=== PATIENT | male | born 1950 | race Caucasian/White ===

== ENCOUNTER 2018-10-07 10:35 | Emergency (ER) | payer MEDICARE ==
[~2018-10-07] VITALS: Ht 170.2 cm; Wt 79.4 kg
[~2018-10-07 10:35] MED LIST: AMLODIPINE BESY10 MG PO; ATENOLOL50 MG PO; CHOLESTYRAMINE P4 GM PO; CIPRO500 MG PO; FLAGYL500 MG PO; LOSARTAN-HCTZ1 EAC2 PO; NAPROXEN500 MG PO; ROBAXIN-750750 MG PO
== END 2018-10-07 11:31 | disposition home or self-care (01) ==
LOC: ED 10:35
PROC: 0HQEXZZ Repair Left Lower Arm Skin, External Approach (ICD-10-PCS; principal; 2018-10-07)
DX: S51.812A Laceration without foreign body of left forearm, initial encounter (principal); I10 Essential (primary) hypertension; Z88.5 Allergy status to narcotic agent; Z79.899 Other long term (current) drug therapy; W45.8XXA Other foreign body or object entering through skin, initial encounter
CPT/HCPCS: 12002; 90471; 90715; 99282-25

== ENCOUNTER 2019-02-12 08:19 | Day surgery (SDC) | payer MEDICARE ==
[~2019-02-12] VITALS: Ht 162.6 cm; Wt 75.8 kg
[~2019-02-12 08:19] MED LIST changes: +OMEPRAZOLE20 MG PO
--- NOTE | 2019-02-12 10:42 | NUR ---
02/12/19 1042 Roosevelt,Janice 1035 PT ARRIVED TO PACU ASLEEP VSS. RESP EVEN AND UNLABORED. 1038 PT WAKES TO TACTILE STIMULI AND DENIES PAIN AND NAUSEA. PLAN OF CARE DISCUSSED.
--- NOTE | 2019-02-12 18:14 | OR ---
[facility] [address], [place] [address] Signed DATE OF OPERATION: 02/12/2019 SURGEON: Nicky Arango MD PREOPERATIVE DIAGNOSES: 1. Low anterior resection in 2005 for diverticular disease. 2. A 29 mm EEA stapled colorectal anastomosis. POSTOPERATIVE DIAGNOSES: 1. Aoclsgl-tx-qhfyerzh sigmoid/left-sided diverticulosis. 2. Minimal internal hemorrhoids. 3. Colorectal anastomosis at 18 cm. PROCEDURE: Colonoscopy without biopsy. ESTIMATED BLOOD LOSS: None. INDICATIONS: Guilherme is a 68-year-old gentleman, who came to us back in 2005. He needed a low anterior resection for a small diverticular abscess next to his bladder. He has a stapled 29 mm EEA anastomosis. He said he has done great since that time. He said he does not particularly like doctor, so he took a hiatus. He returns now at the request of his primary care provider. He said he is now retired and he is enjoying that very much. He gives no family history of colon cancer or polyps. I met with Guilherme in the office and I gave him a pamphlet on colonoscopy. We reviewed that together along with the risks including, but not limited to gas bloating, crampy abdominal pain, bleeding, perforation requiring surgery, and missed diagnosis. He also understands the need for the IV conscious sedation. He had done well with Versed and fentanyl in the past. He expressed understanding and wished to proceed. PROCEDURE NOTE: Guilherme was taken into our endoscopy suite and placed in the left lateral decubitus position. He was given 7 mg of Versed and 100 mcg of fentanyl to cover the case. A digital rectal exam was performed and this was unremarkable. The adult colonoscope was introduced and advanced all around into the cecum under direct visualization of camera without difficulty. His prep was good. The scope was slowly withdrawn. We could easily see the appendiceal orifice and the ileocecal valve. We took pictures throughout for photodocumentation. On this occasion, he does have diverticulosis in the right Electronically Signed By: NICKY ARANGO MD 02/12/19 1814 PATIENT NAME: GUILHERME JASON OPERATIVE REPORT DATE OF : 52 REPORT #: [id number] PHYSICIAN: NICKY ARANGO MD PCP: TIMBO PAPPAS PAC REPORT IS CONFIDENTIAL AND NOT TO BE RELEASED WITHOUT AUTHORIZATION [facility] [address], [place] [address] Signed colon and in the left colon. They were qrxhzth-ma-ytjfnmrn in size, zontylm-tl-dzeqrwzs in number, and scattered about. No evidence of any polyps. We could see the anastomosis at 18 cm. It was well healed without any exposed terence and no granulation tissue or ulcerations. The scope had been retroflexed in the rectum. He does have just minimal internal hemorrhoids. After this, the gas was suctioned out and colonoscope removed. Guilherme tolerated procedure quite well. RECOMMENDATION: Guilherme is welcome to see us in 10 years for repeat colonoscopy so long his health holds up. Nicky Arango MD ALB/MODL /[id number] cc: ABDIEL Briseno MD Copies: NICKY ARANGO MD ~ Electronically Signed By: NICKY ARANGO MD 02/12/19 1814 PATIENT NAME: GUILHERME JASON OPERATIVE REPORT DATE OF : 52 REPORT #: [id number] PHYSICIAN: NICKY ARANGO MD PCP: TIMBO PAPPAS [facility] REPORT IS CONFIDENTIAL AND NOT TO BE RELEASED WITHOUT AUTHORIZATION
== END 2019-02-12 11:35 | disposition home or self-care (01) ==
LOC: DS 08:19 → OPS 08:19 → DS 09:45 → OPS 11:35
PROVIDERS: Colon & Rectal Surgery
PROC: 0DJD8ZZ Inspection of Lower Intestinal Tract, Via Natural or Artificial Opening Endoscopic (ICD-10-PCS; principal; 2019-02-12 09:45)
DX: Z12.11 Encounter for screening for malignant neoplasm of colon (principal); K57.30 Diverticulosis of large intestine without perforation or abscess without bleeding; K64.8 Other hemorrhoids; I10 Essential (primary) hypertension; K21.9 Gastro-esophageal reflux disease without esophagitis; F17.220 Nicotine dependence, chewing tobacco, uncomplicated; Z98.0 Intestinal bypass and anastomosis status; Z87.19 Personal history of other diseases of the digestive system; Z88.5 Allergy status to narcotic agent
CPT/HCPCS: G0121; 99153; G0500; J2250; J3010; J7121

== ENCOUNTER 2021-05-21 10:35 | Emergency (ER) | payer MEDICARE ==
[~2021-05-21] VITALS: Ht 162.6 cm; Wt 75.8 kg
--- OUTSIDE RECORDS SUMMARY | 2021-05-21 10:38 | XMS ---
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 EKarol VISIT COUNT (12 MO.) 1 BO [facility] TOTAL 1 NOTE: Visits indicate total known visits. ED/UCC VISIT TRACKING (12 MO.) 05/21/2021 10:36 [facility] OR TYPE: Emergency COMPLAINT: - CHEST PAIN INPATIENT VISIT TRACKING (12 MO.) No inpatient visits to display in this time frame [email or web address]
[2021-05-21] MEDS ORDERED: ELIQUIS5 MG PO (15:09)
--- NOTE | 2021-05-22 06:49 | EKG ---
[facility] [address] [facility] [place] [address] Signed Atrial fibrillation with rapid ventricular response Abnormal ECG No previous ECGs available Confirmed by VINNIE MINAYA MD ([id number]) on 05/22/2021 6:48:49 AM Electronically Signed By: VINNIE MINAYA MD 05/22/21 0649 PATIENT NAME: GUILHERME JASON Electrocardiogram DATE OF : 52 PHYSICIAN: VINNIE MINAYA MD REPORT #: [id number] REPORT IS CONFIDENTIAL AND NOT TO BE RELEASED WITHOUT AUTHORIZATION
== END 2021-05-21 15:28 | disposition home or self-care (01) ==
LOC: ED 10:35
DX: I48.91 Unspecified atrial fibrillation (principal); I10 Essential (primary) hypertension; Z88.5 Allergy status to narcotic agent; Z79.899 Other long term (current) drug therapy
CPT/HCPCS: 36415; 71045; 80053; 83735; 84484; 85025; 85379; 93005; 93010; 96374; 96376; 99285-25; J7030

== ENCOUNTER 2021-09-11 10:13 | Emergency (ER) | payer MEDICARE ==
[~2021-09-11] VITALS: Ht 162.6 cm; Wt 75.7 kg
[~2021-09-11 10:13] MED LIST changes: +ELIQUIS5 MG PO
[2021-09-11] MEDS ORDERED: PREDNISONE20 MG PO (12:00)
== END 2021-09-11 12:26 | disposition home or self-care (01) ==
LOC: ED 10:13
DX: M54.50 Low back pain, unspecified (principal); I10 Essential (primary) hypertension; Z88.5 Allergy status to narcotic agent; Z79.01 Long term (current) use of anticoagulants
CPT/HCPCS: 99283

== ENCOUNTER 2024-03-03 11:15 | Emergency (ER) | payer MEDICARE ==
[~2024-03-03] VITALS: Ht 162.6 cm; Wt 72.8 kg
[~2024-03-03 11:15] MED LIST changes: +PREDNISONE20 MG PO
[2024-03-03] MEDS ORDERED: SULFACETAMIDE S15 ML OPTH (12:08)
[2024-03-03 12:13] VITALS: BP 125/69
== END 2024-03-03 12:14 | disposition home or self-care (01) ==
LOC: ED 11:15
DX: H10.33 Unspecified acute conjunctivitis, bilateral (principal); I10 Essential (primary) hypertension; Z88.5 Allergy status to narcotic agent; Z79.899 Other long term (current) drug therapy
CPT/HCPCS: 99283

== ENCOUNTER 2024-07-02 12:08 | Emergency (ER) | payer MEDICARE ==
[~2024-07-02] VITALS: Ht 162.6 cm; Wt 75.5 kg
[~2024-07-02 12:08] MED LIST changes: +SULFACETAMIDE S15 ML OPTH
[2024-07-02 14:43] LABS: BILIRUBIN, URINE NEGATIVE (negative); BLOOD/HGB, URINE TRACE-I (Negative); KETONE, URINE NEGATIVE (Negative); LEUK ESTERASE, URINE NEGATIVE (negative); NITRITE, URINE NEGATIVE (negative)
[2024-07-02] MEDS ORDERED: LOSARTAN-HCTZ1 EAC1 PO (14:46)
[2024-07-02 14:49] LABS: CANNABINOID, URINE NEGATIVE (NEGATIVE)
[2024-07-02 14:52] LABS: BACTERIA, URINE NONE SEEN /hpf (negative); CASTS, URINE NONE SEEN \\lpf; COLLECTION TYPE, URINE CLEAN CATCH; CRYSTALS, URINE NONE SEEN (0-1+); EPITHELIAL CELLS, URINE NONE SEEN /lpf (0-1+); REFLEX CULTURE, URINE No (No)
[2024-07-02 14:53] LABS: WHITE BLOOD CELLS, URINE 0-1 /HPF (0-5)
[2024-07-02 15:10] LABS: AMPHETAMINES, URINE NEGATIVE (NEGATIVE); BARBITURATES, URINE NEGATIVE (NEGATIVE); BENZODIAZEPINE, URINE NEGATIVE (NEGATIVE); BUPRENORPHINE, URINE NEGATIVE (NEGATIVE); COCAINE, URINE NEGATIVE (NEGATIVE); ECSTASY, URINE NEGATIVE (NEGATIVE); FENTANYL, URINE NEGATIVE (NEGATIVE); METHADONE, URINE NEGATIVE (NEGATIVE); OPIATES, URINE NEGATIVE (NEGATIVE); OXYCODONE, URINE NEGATIVE (NEGATIVE); PHENCYCLIDINE, URINE NEGATIVE (NEGATIVE)
[2024-07-02 15:11] LABS: BASOPHILS 0.7 % (0-2); EOSINOPHILS 0.2 % (0-6); HEMATOCRIT 46.5 % (35.0-50.0); HEMOGLOBIN 16.5 g/dL (12.0-18.0); LYMPHOCYTES 13.1 % (24-44); MCH 34.3 (27-36); MCHC 35.6 g/dl (30-36); MCV 96.5 fl (81-99); MONOCYTES 12.1 % (0-12); NEUTROPHILS 73.9 % (39-80); PLATELET COUNT 202 K/uL (140-440); RBC 4.82 M/ul (4.3-5.7); RDW 13.5 (10.5-15.0)
[2024-07-02 15:33] LABS: ALBUMIN 3.5 g/dL (3.4-5.0); ALBUMIN/GLOBULIN RATIO 0.95 (1.1-2.4); BILIRUBIN, TOTAL 1.5 mg/dL (0.2-1.0); CALCIUM 8.9 mg/dL (8.5-10.1); MAGNESIUM 1.7 mg/dL (1.8-2.4); PROTEIN, TOTAL 7.2 g/dL (6.4-8.2)
[2024-07-02 16:09] VITALS: BP 141/72
== END 2024-07-02 16:09 | disposition home or self-care (01) ==
LOC: ED 12:08
PROVIDERS: Emergency Medicine
DX: F10.90 Alcohol use, unspecified, uncomplicated (principal); I10 Essential (primary) hypertension; Z88.5 Allergy status to narcotic agent; Z79.899 Other long term (current) drug therapy
CPT/HCPCS: 36415; 80053; 80307; 81001; 83690; 83735; 85025; 99284

== ENCOUNTER 2025-01-02 08:24 | Emergency (ER) | payer MEDICARE ==
[~2025-01-02] VITALS: Ht 162.6 cm; Wt 70.4 kg
[~2025-01-02 08:24] MED LIST changes: +LOSARTAN-HCTZ1 EAC1 PO
[2025-01-02] MEDS ORDERED: AMOX TR-K CLV1 EAC1 PO (09:38)
[2025-01-02 10:05] VITALS: BP 111/66
--- NOTE | 2025-01-03 10:43 | EKG ---
[facility] [address] [facility] [place], [place] [address] Signed Atrial fibrillation Nonspecific ST and T wave abnormality Abnormal ECG When compared with ECG of 21-MAY-2021 10:39, Nonspecific T wave abnormality now evident in Anterior leads Confirmed by Heraclio Perdue DO ([id number]) on 01/03/2025 10:43:39 AM Electronically Signed By: HERACLIO PERDUE DO 01/03/25 1043 PATIENT NAME: CASIEGUILHERMEKIARA CONN Electrocardiogram DATE OF : 52 PHYSICIAN: HERACLIO PERDUE DO REPORT #: [id number] REPORT IS CONFIDENTIAL AND NOT TO BE RELEASED WITHOUT AUTHORIZATION
== END 2025-01-02 10:00 | disposition home or self-care (01) ==
LOC: ED 08:24
DX: K02.9 Dental caries, unspecified (principal); I48.91 Unspecified atrial fibrillation; I10 Essential (primary) hypertension; Z88.5 Allergy status to narcotic agent; Z79.899 Other long term (current) drug therapy
CPT/HCPCS: 93005; 93010; 99283